=== PATIENT | female | born 1945 | race Caucasian/White ===

== ENCOUNTER 2019-07-26 11:09 | Outpatient (CLI) | payer MEDICARE, BC ==
[~2019-07-26] VITALS: Ht 167.6 cm; Wt 59.0 kg
--- NOTE | ~2019-07-26 | HEMODYNAMI ---
PATIENT:WISAM QUEEN MEDICAL RECORD: [id number] : 49 LOCATION:[facility] ADMISSION DATE: 07/26/19 Generatedon:07/26/201913:36 Patient name: WISAM QUEEN Patient #: [id number] SSN: DO B: 1945 Date of study: 07/26/2019 Page: Of Hemodynamic Procedure Report Patient Data Patient Demographics Procedure consent was obtained First Name: WISAM Gender: Female Last Name: BERNICE : 1945 Patient #: [id number] Age: 73 year(s) Race: Additional ID: [id number] Contact details [address]: [address] [place] [address] State: [place] City: [place] Zip code: [address] Admission Admission Data Admission Date: 07/26/2019 Admission Time: 11:09 Arrival Date: 07/26/2019 Arrival Time: 13:00 Admit Source: Other Insurance Payor: Medicare [facility] #: [id number] Height (in.): 65.75 BSA: 1.66 (m2) Height (cm.): 167 BMI: 21.16 (kg/m2) Weight (lbs.): 130.07 Weight (kg.): 59 Lab Results Lab Result Date: 07/26/2019 Lab Result Time: 0:00 Biochemistry Name Units Result Min Max BUN mg/dl 12 --(-*--)-- 7 18 Creatinine mg/dl 0.8 --(-*--)-- 0.6 1.3 eGFR ml/min 75 *-(----)-- 90 120 NONAFRICAN CBC Name Units Result Min Max Hemoglobin g/dl 13.1 -*(----)-- 13.5 17.5 Procedure Procedure Types Cath Procedure Diagnostic Procedure C [facility] w/Coronaries Sedation Charges Moderate Sedation up to 15 minutes PCI Procedure Coronary Stent Coronary Stent Initial Hemochron ACT Test Procedure Description Procedure Date Procedure Date: 07/26/2019 Procedure Start Time: 13:11 Procedure End Time: 13:32 Procedure Staff Name Function Antwan Hightower MD Performing Physician Ludy Musa RT Monitor Donna Woodall RT Scrub Jose Manuel Jain RN Nurse Indication Angina Procedure Data Cath Procedure Fluoroscopy Diagnostic fluoroscopy Total fluoroscopy Time: 3.2 time: 3.2 min min Diagnostic fluoroscopy Total fluoroscopy dose: 249 dose: 249 mGy mGy Contrast Material Contrast Material Type Amount (ml) Isovue 300 75 Entry Location Entry Primary Successful Side Size Upsize Upsize Entry Closure [place] ccessful Closure Location (Fr) 1 (Fr) 2 (Fr) Remarks Device Remarks Radial Right 6 Fr Mechanical artery Short Compression Estimated blood loss: 5 ml Diagnostic catheters Device Type Used For End Catheter Placement DIAGNOSTIC [place] 110cm 5 Multi-vessel Fr catheter ([id number]) Angiography Procedure Complications No complications Procedure Medications Medication Administration Route Dosage Oxygen etCO2 Nasal cannula 2 l/min Lidocaine 2% added to field 20 Heparin Flush Bag added to field 2 bags (1000units/500ml NS) 0.9% NaCl I.V. 100 ml/hr Radial Cocktail I.A. 1 syringe (Verapamil 2mg/Nitro 400mcg/Heparin 1500units) Versed I.V. 2 mg Fentanyl I.V. 50 mcg Heparin Bolus I.V. 4000 units Versed I.V. 1 mg Fentanyl I.V. 50 mcg Integrilin (Bolus I.V. 5 ml 2mg/ml) Versed I.V. 1 mg Plavix P.O. 600 mg Hemodynamics Rest BSA: 1.66 (m2) HGB: 13.1 (g/dl) O2 Consumption: Estimated: 171.26 (ml/min) O2 Co nsumption indexed: Estimated:103.17 (ml/min/m) Heart Rate: 100 (bpm) Pressure Samples Time Site Value (mmHg) Purpose Heart Use Rate(bpm) 13:15 LV 152/39,32 Snapshot 137 13:15 AO 152/135(136) Pullback 106 Gradients Valve Time Site Site 2 Mean SEP/DFP Peak To Heart Use 1 (mmHg) (sec/min) Peak Rate (mmHg) (bpm) Aortic 13:15 LV AO 106 152/135(136) Snapshots Pre Cath Intra NCS Post Cath Vital Signs Time Heart Resp SPO2 etCO2 NIBP (mmHg) Rhythm Pain Sedation Rate (ipm) (%) (mmHg) Status Level (bpm) 13:03:23 88 15 97 32.1 157/75(107) NSR 0 (11) 10(A) , No pain 13:07:50 96 16 98 35.1 148/69(107) NSR 0 (11) 10(A) , No pain 13:12:12 91 16 100 14.9 133/63(88) NSR 0 (11) 9(A) , No pain 13:16:30 107 14 98 38.1 124/61(85) NSR 0 (11) 9(A) , No pain 13:20:46 111 13 99 38.1 124/63(92) NSR 0 (11) 9(A) , No pain 13:25:08 111 22 100 32.1 137/61(93) NSR 0 (11) 9(A) , No pain 13:29:30 101 15 100 34.4 131/67(89) NSR 0 (11) 10(A) , No pain Medications Time Medication Route Dose Verified Delivered Reason Not es Effectiveness by by 13:03:12 Oxygen etCO2 2 l/min Antwan Richard used for Nasal St Pablo Jain RN procedure cannula 13:03:20 Lidocaine 2% added 20ml Antwan Moncada used for to vial [facility] procedure field MD NICHOLAS 13:03:25 Heparin Flush added 2 bags Antwan Moncada used for Bag to [facility] procedure (1000units/500ml field MD NICHOLAS NS) 13:03:34 0.9% NaCl I.V. 100 Antwan Richard Per physician ml/hr St Pablo Jain RN, MD 13:08:43 Versed I.V. 2 mg Antwan Riosie for sedation St Pablo Jain RN, MD 13:08:50 Fentanyl I.V. 50 mcg Antwan Riosie for sedation St Pablo Jain RN, MD 13:13:27 Radial Cocktail I.A. 1 Antwan Moncada for (Verapamil syringe [facility] John vasodilation 2mg/Nitro MD NICHOLAS 400mcg/Heparin 1500units) 13:14:58 Versed I.V. 1 mg Antwan Riosie for sedation St Pablo Jain RN, MD 13:15:01 Fentanyl I.V. 50 mcg Antwan Richard for sedation St Pablo Jain RN, MD 13:19:41 Heparin Bolus I.V. 4000 Antwan Richard for clari ified units St Pablo Jain RN anticoagulation with dr MD hardwick 13:22:25 Integrilin I.V. 5 ml Antwan Richard for was caron 5 (Bolus 2mg/ml) St Pablo Jain RN anticoagulation ml of MD vial 13:25:52 Versed I.V. 1 mg Antwan Richard for sedation St Pablo Jain RN, MD 13:30:00 Plavix P.O. 600 mg [address] for [facility] Pablo Jain RN antiplatelet MD therapy Procedure Log Time Note 12:30:04 Jose Manuel Jain RN sent for patient. Start room use. 12:46:05 Diagnostic Cath Status : Elective 12:46:56 Indication : Angina 12:47:11 Time tracking: Regular hours (M-F 7:00 - 5:00) 12:47:15 Plan of Care:Hemodynamics will remain stable., Cardiac rhythm will remain stable., Comfort level will be maintained., Respiratory function will remain adequate., Patient/ family verbilizes understanding of procedure., Procedure tolerated without complication., Recovers from procedure without complications.. 12:49:14 Lab Result : eGFR NONAFRICAN 75 ml/min 12:49:14 Lab Result : Hemoglobin 13.1 g/dl 12:49:14 Lab Result : BUN 12 mg/dl 12:49:14 Lab Result : Creatinine 0.8 mg/dl 12:51:01 Informed consent obtained and on chart 12:52:08 Admit Source: Other 12:52:10 Arrival Date: 07/26/2019 1:00:00 PM 12:52:36 Insurance Payor : Medicare 12:52:46 Patient Height : 65.75 inches 12:52:49 Patient Weight : 130.07 lbs 12:52:57 Patient received from Pre/Post Procedure Room to CCL 1 Alert and oriented. Tansferred to table in Supine position. 12:52:58 Warm blankets applied, and maryan hugger turned on for patient comfort. 12:52:59 Correct patient and procedure confirmed by team. 12:52:59 ECG and BP/O2 sat monitors applied to patient. 13:02:08 Vital chart was started 13:03:12 Oxygen 2 l/min etCO2 Nasal cannula was administered by Jose Manuel Jain RN; used for procedure; Verbal order read back and verified. 13:03:20 Lidocaine 2% 20ml vial added to field was administered by nAtwan Hightower MD; used for procedure; Verbal order read back and verified. 13:03:25 Heparin Flush Bag (1000units/500ml NS) 2 bags added to field was administered by Antwan Hightower MD; used for procedure; Verbal order read back and verified. 13:03:34 0.9% NaCl 100 ml/hr I.V. was administered by Jose Manuel Jain RN; Per physician; Verbal order read back and verified. 13:05:43 Baseline sample Acquired. 13:05:54 Rhythm: sinus tachycardia 13:05:56 Full Disclosure recording started 13:06:01 H&P Date Dictated: 07/26/2019 Within 30 days and on chart., H&P Addendum completed by physician on day of procedure. (MUST COMPLETE FOR ALL OUTPATIENTS). 13:06:02 Pre-procedure instructions explained to patient. 13:06:03 Pre-op teaching completed and patient verbalized understanding. 13:06:05 Family in patients room. 13:06:06 Patient NPO since Midnight. 13:06:09 Is the patient allergic to Iodine/contrast media? No. 13:06:10 Was the patient premedicated? Yes 13:06:11 Is patient on blood thinner?No 13:06:12 Patient diabetic? No. 13:06:15 Previous problem with sedation/anesthesia? No ? 13:06:17 Snore? No 13:06:18 Sleep apnea? No 13:06:19 Deviated septum? No 13:06:20 Opens mouth fully? Yes 13:06:21 Sticks out tongue? Yes 13:06:23 Airway obstruction? No ? 13:06:29 Dentures? Yes CRACKED TOOTH 13:06:36 Pre procedure: right dorsailis pedis pulse 2+ Normal; easily identifiable; not easily obliterated 13:06:39 Pre procedure: left dorsailis pedis pulse 2+ Normal; easily identifiable; not easily obliterated 13:06:42 Patient pain scale 0/10 ?. 13:06:53 IV patent on arrival in left forearm with 0.9% NaCl at [facility]. 13:07:05 Lab results completed and on chart. 13:07:40 Stress Test: yes; N/A ? 13:07:45 Risk of Mortality: 0.1 13:07:48 Risk of blood transfusion: 0.8 13:07:52 Risk of ALEXEI: 0.4 13:08:21 Right Radial & Right Groin area was prepped with chlora-prep and draped in sterile fashion 13:08:22 Alarms reviewed by RDarleen N. 13:08:22 Sharps counted by scrub and verified by R.N. 13:08:24 Physician arrived 13:08:24 --------ALL STOP TIME OUT------ 13:08:25 Final Timeout: patient, procedure, and site verified with staff and physician. All members of the team are in agreement. 13:08:26 Right Radial & Right Groin site verified by team. 13:08:30 Fire Safety Assessment: A--An alcohol-based skin anteseptic being used preoperatively., C--Open oxygen or nitrous oxide is being used., D--An ESU, laser, or fiber-optic light is being used. 13:08:34 Physical assessment completed. ASA score P 2 - A patient with mild systemic disease as per Antwan Hightower MD. 13:08:43 Versed 2 mg I.V. was administered by Jose Manuel Jain RN; for sedation; Verbal order read back and verified. 13:08:44 2) 60-89 Mildly reduced kidney function, and other findings (as for stage 1) point to kidney disease. 13:08:50 Fentanyl 50 mcg I.V. was administered by Jose Manuel Jain RN; for sedation; Verbal order read back and verified. 13:08:53 Maximum allowable contrast dose (3.7 X eGFR X 0.75)203 ml. 13:08:59 Sedation plan: IV Moderate Sedation Medication:Versed, Fentanyl 13:09:32 Use device set Radial Dx or PCI 13:09:33 ACIST Syringe (12793) opened to sterile field. 13:09:33 Medline Cath Pack ([id number]) opened to sterile field. 13:09:34 Bag Decanter () opened to sterile field. 13:09:34 ACIST Hand Control (21513) opened to sterile field. 13:09:34 ACIST Manifold (60582) opened to sterile field. 13:09:35 Tegaderm 4 x 4 (1626W) opened to sterile field. 13:09:35 MBrace Wrist Support ([id number]) opened to sterile field. 13:09:38 SHEATH 6FR RAIN (1506935) opened to sterile field. 13:09:38 EMERALD Guide Wire (719-476) opened to sterile field. 13:11:52 Procedure started. 13:11:57 Local anesthetic to right radial artery with Lidocaine 2% by Antwan Hightower MD.INITIAL ACCESS ONLY 13:12:06 A 6 Fr Short sheath was inserted into the Right Radial artery 13:13:27 Radial Cocktail (Verapamil 2mg/Nitro 400mcg/Heparin 1500units) 1 syringe I.A. was administered by Antwan Hightower MD; for vasodilation; Verbal order read back and verified. 13:14:39 A DIAGNOSTIC [place] 110cm 5 Fr catheter ([id number]) was advanced over the wire and used for Multi-vessel Angiography. 13:14:58 Versed 1 mg I.V. was administered by Jose Manuel Jain RN; for sedation; Verbal order read back and verified. 13:15:01 Fentanyl 50 mcg I.V. was administered by Jose Manuel Jain RN; for sedation; Verbal order read back and verified. 13:15:33 LV hemodynamics recorded. 13:15:35 LV gram done using PINON 13:15:53 EF : 55 % 13:16:01 LCA angiography performed. 13:16:08 Injector settings: Ml/sec: 3, Volume: 6, 13:16:26 ACC Pre-intervention MINOO Flow is 3. 13:16:27 Pre PCI Site: [place] mLAD has 80% stenosis. 13:17:11 RCA angiography performed. 13:17:14 Injector settings: Ml/sec: 3, Volume: 6, 13:17:26 ACCDominant side:Right 13:17:26 Catheter removed. 13:17:26 Proceeding to intervention. 13:17:52 INFLATOR Merit BasixCompak (CO9873) opened to sterile field. 13:17:57 GUIDE 6FR XBLAD 3.5 catheter ([id number]) opened to sterile field. 13:18:16 WHISPER 300cm guide wire ([id number]) opened to sterile field. 13:19:40 6 Fr XBLAD 3.5 guide catheter was inserted over the wire 13:19:41 Heparin Bolus 4000 units I.V. was administered by Jose Manuel Jain RN; for anticoagulation; verified with dr hardwick Verbal order read back and verified. 13:19:43 WHISPER wire advanced. 13:22:25 Integrilin (Bolus 2mg/ml) 5 ml I.V. was administered by Jose Manuel Jain RN; for anticoagulation; wasted 5 ml of vial Verbal order read back and verified. 13:23:28 Wire advanced across lesion. 13:25:52 Versed 1 mg I.V. was administered by Jose Manuel Jain RN; for sedation; Verbal order read back and verified. 13::43 Place stent Inflation Number: 1 A MICHELLE RX 3.0 x 15 stent ([id number]) was prepped and advanced across the Mid LAD 80. The stent was deployed at 14 FRANK for 0:10 (min:sec) 0. 13:26:58 Stent catheter was removed intact over wire. 13::59 Wire removed. 13::59 Guide catheter removed. 13:27:32 Sheath removed intact; hemostasis achieved with Mechanical Compression to the Right Radial artery. 13:27:36 ZEPHYR REGULAR TR BAND (814199) opened to sterile field. 13:27:39 Procedure ended.(Physican Out) 13:30:00 Plavix 600 mg P.O. was administered by Jose Manuel Jain RN; for antiplatelet therapy; Verbal order read back and verified. 13:30:56 ACC Post-intervention MINOO Flow is 3. 13:31:07 Fluoroscopy time 03.20 minutes. 13:31:12 Fluoroscopy dose: 249 mGy 13:31:12 Flurop Dose total: 249 13:31:18 Dose Area Product 45175 mGy/cm. 13:31:35 Contrast amount:Isovue 300 75ml. 13:31:38 Maximum allowable dose exceeded? No. 13:31:39 Sharps counted by scrub and verified by R.N. 13:31:41 [place] band inflated with 12cc of air. 13:31:42 Insertion/operative site no bleeding no hematoma. 13:31:47 Post right radial artery:stable 13:31:49 Post Procedure Pulses reassessed and unchanged 13:31:51 Post procedure rhythm: unchanged. 13:31:54 Estimated blood loss: 5 ml 13:31:55 Post procedure instruction explained to patient.Patient verbalizes understanding. 13:31:56 Patient needs reinforcement of post procedure teaching. 13:32:34 Procedure type changed to Cath procedure, Diagnostic procedure, [facility], [facility] w/Coronaries, Sedation Charges, Moderate Sedation up to 15 minutes, PCI procedure, Coronary Stent, Coronary Stent Initial, Hemochron ACT Test 13:32:36 Procedure and supply charges have been captured, reviewed, submitted and are correct. 13:32:41 Procedure Complication : No complications 13:32:43 Vital chart was stopped 13:32:44 [facility] Findings: MVD- PCI performed (see procedure note) 13:32:46 Operative report dictated upon procedure completion. 13:32:47 See physician's report for complete and final results. 13:32:49 Report given to Pre/Post Procedure Room. 13:32:52 Patient transfered to Pre/Post Procedure Room with Stretcher. 13:32:54 Procedure ended. 13:32:54 Full Disclosure recording stopped 13:33:02 ACT drawn and resulted at out of range high seconds. (normal therapeutic range 180-240 seconds). 13:33:21 ACC-PCI Only Patient was given prescriptions, or instructed by Antwan Hightower MD to start/continue the following medications upon discharge: Plavix 13:33:22 End room use (Document Last) Intervention Summary Intervention Notes Time ActionType Lesion and Equipment Used Action# Pressure Duration Attributes 13:26:43 Place stent Mid LAD MICHELLE RX 3.0 x 1 14 00:10 15 stent ([id number]) Device Usage Item Name Manufacture Quantity Catalog Hospital Part [facility] Lot# / Number Charge Number Stock Stock Serial# Code ACIST Syringe Acist 1 45362 332589 483787 [id number] 20 (10085) Medical Systems Inc Medline Cath Medline 1 [id number] 362863 21926 751094 5 Pack ([id number]) Bag Decanter Microtek 1 2001S 266711 74915 733682 5 (2001S) Medical Inc. ACIST Hand Acist 1 98237 055028 142252 645244 5 Control Medical (42672) Systems Inc ACIST Manifold Acist 1 27192 598683 372134 924663 5 (24808) Medical Systems Inc Tegaderm 4 x 4 3M 1 1626W 542639 795998 174940 5 (1626W) MBrace Wrist Advanced 1 140-0250-00 855590 13811 891245 5 Support Vascular ([id number]) Dynamics SHEATH 6FR Cardinal 1 9785072 964555 4070954 007503 5 RAIN (9250814) [facility] EMERALD Guide Cardinal 1 502-455 036844 370826 406942 5 Wire (502-455) [facility] DIAGNOSTIC Terumo 1 40-2411 501086 991799 947326 5 [place] 110cm 5 Fr catheter (393417) INFLATOR Merit Merit 1 QS0949 763139 297042 759546 15 BasixCompak Medical (ET9275) GUIDE 6FR Cardinal 1 [id number] 224657 624035 473922 10 XBLAD 3.5 Health catheter (63877923) WHISPER 300cm Jones 1 [id number] 112934 943004 712683 5 guide wire Vascular (3967356ND) MICHELLE RX 3.0 x Medtronic 1 [id number] 371692 5841765 215291 5 [id number] 15 stent ([id number]) ZEPHYR REGULAR Cardinal 1 494671 482188 7290951 895055 5 [facility] Stat Doctors (730429) Signature Audit [place] Stage Time Signature Unsigned Intra-Procedure 07/26/2019 Ludy Musa 1:36:09 PM RT(R) Intra-Procedure 07/26/2019 Jose Manuel Jain RN 1:36:33 PM Intra-Procedure 07/26/2019 Antwan Elliott 1:36:49 PM Pablo NICHOLAS [address] [place] [address]
[2019-07-26] MEDS ORDERED: LEVOTHYROXINE100 MCG PO (11:34)
[2019-07-26] MEDS ORDERED: SINGULAIR10 MG PO (11:34)
[2019-07-26 11:43] VITALS: BP 156/69; Ht 167.6 cm; Wt 59.0 kg
[2019-07-26 12:04] LABS: BASOPHILS 0.7 % (0-2); EOSINOPHILS 2.2 % (0-7); HEMATOCRIT 39.6 % (36.0-48.0); HEMOGLOBIN 13.1 g/dL (12-16); IMMATURE GRANULOCYTES 0.3 % (0-5); LYMPHOCYTES 30.9 % (15-50); MCH 32.3 pg (26.0-34.0); MCHC 33.1 g/dL (31.0-37.0); MCV 97.8 fL (80.0-100.0); MEAN PLATELET VOLUME 9.9 fL (7.4-10.4); MONOCYTES 7.8 % (2-11); NEUTROPHILS 58.1 % (40-80); PLATELET COUNT 265 10x3/uL (130-400); RBC 4.05 10x6/uL (4.00-5.40); RDW 12.5 % (11.5-14.5); WBC 6.7 10x3/uL (4.8-10.8)
[2019-07-26 12:18] LABS: ALT (SGPT) 20 U/L (10-68); CALC OSMOLALITY 277 mosm/kg (275-300); CALCIUM 9.5 mg/dL (8.5-10.1); CARBON DIOXIDE 28.2 mmol/L (21.0-32.0); CHLORIDE - SERUM 105 mmol/L (98-107); CHOL - HDL RATIO 2.4 ratio (2.3-4.1); CHOLESTEROL, TOTAL 191 mg/dL (0-200); CREATININE - SERUM 0.8 mg/dL (0.6-1.3); GLUCOSE 105 mg/dL (74-106); HDL CHOLESTEROL 81 mg/dL (32-96); LDL CHOLESTEROL 87 mg/dL (0-100); LDL-HDL RATIO 1.1 ratio (1.5-3.5); POTASSIUM - SERUM 3.6 mmol/L (3.5-5.1); SODIUM 139 mmol/L (136-145); TRIGLYCERIDE 117 mg/dL (30-200); UREA NITROGEN 12 mg/dL (7-18); eGFR NON AFRICAN AMERICAN 75 mL/min (90-120)
[2019-07-26] MEDS ORDERED: PLAVIX75 MG PO (13:42)
--- NOTE | 2019-07-26 13:45 | NUR ---
PT REC'D TO ROOM 5 VIA STRETCHER FROM SUPERVISOR BINDERY. FRIEND AT BS. MONITORS ESTAB. SEE VETERINARY MANAGER. ALARMS ON AND C/L IN REACH.
--- NOTE | 2019-07-26 14:00 | NUR ---
R WRIST SITE C/D/I, NO S/S BLEEDING OR HEMATOMA. R ARM/HAND WARM, PULSES PALP WITH BRISK CAP REFILL. VSS. ALARMS ON AND C/L IN REACH.
[2019-07-26] MEDS ORDERED: BAYER CHEWABLE81 MG PO (14:07)
--- NOTE | 2019-07-26 14:30 | NUR ---
R WRIST SITE C/D/I, NO S/S BLEEDING OR HEMATOMA. HAND WARM WITH PALP PULSES. VSS. PT DENIES PAIN OR NEEDS. FRIEND REMAINS AT BS.
--- NOTE | 2019-07-26 14:45 | NUR ---
R WRIST SITE C/D/I, NO S/S BLEEDING OR SWELLING. VSS. PT DENIES NEEDS.
--- NOTE | 2019-07-26 15:15 | NUR ---
R WRIST SITE C/D/I, NO S/S BLEEDING OR HEMATOMA. PULSES PALP. VSS. PT GIVEN COFFEE PER REQUEST. ALARMS ON AND C/L IN REACH.
--- NOTE | 2019-07-26 15:45 | NUR ---
R WRIST SITE C/D/I, NO S/S BLEEDING OR HEMATOMA. SITTING UP IN BED, VISITING. VSS. DENIES NEEDS.
--- NOTE | 2019-07-26 16:45 | NUR ---
1cc OF AIR REMOVED FROM Z BAND. NO BLEEDING/HEMATOMA NOTED. CALL LIGHT WITHIN REACH. FRIEND AT BEDSIDE. VSS.
--- NOTE | 2019-07-26 17:00 | NUR ---
2cc OF AIR REMOVED FROM Z BAND. NO BLEEDING/HEMATOMA NOTED. CALL LIGHT WITHIN REACH. VSS AT THIS TIME. FRIEND AT BEDSIDE.
--- NOTE | 2019-07-26 17:20 | NUR ---
R WRIST SITE C/D/I, NO S/S BLEEDING. PIV D/C'D INTACT, DSG APPLIED. PT UP TO GET DRESSED WITH ASSISTANCE, THEN TO BR INDEPENDENTLY.
--- NOTE | 2019-07-26 17:35 | NUR ---
Z BAND REMOVED AND DSG APPLIED, ARM BOARD IN PLACE. ALL D/C INSTRUCTIONS REVIEWED WITH PT AND FRIEND WHO IS STAYING WITH HER TONIGHT.
--- NOTE | 2019-07-26 17:45 | NUR ---
PT D/C'D VIA W/C TO PRIVATE VEHICLE WITH ALL PAPERWORK, PRESCRIPTION, AND BELONGINGS.
--- NOTE | 2019-07-27 12:12 | OP ---
PATIENT NAME: WISAM QUEEN MEDICAL RECORD: [id number] :49 LOCATION:D.[facility] ADMISSION DATE: SURGEON: AMAYA HARDIN MD DATE OF OPERATION: 07/26/2019 PROCEDURE: Left heart catheterization, selective coronary angiography, right radial approach. CATHETERS: . Radial sheath, Rudolph catheter. The procedure was well tolerated. The patient returned to the waggoner. Sheath removed. Adequate hemostasis and TR band was placed. FINDINGS: Left ventriculography in 30-degree PINON view: Normal wall motion, normal systolic function. CORONARY ANATOMY: LEFT MAIN: Left main is free of disease. LAD: Has discrete 80% stenosis in its mid portion. CIRCUMFLEX: Free of disease. RIGHT CORONARY ARTERY: Dominant right, free of disease. IMPRESSION: Single-vessel disease. Continued angina. PLAN: Intervention momentarily. DESCRIPTION OF PROCEDURE: Using indwelling sheath, XB LAD guiding catheter provided excellent guide catheter support followed by 300 cm Whisper wire was placed across the tightly occluded LAD down this portion of vessel. Stent deployed was a 3.0 x 15 mm [place] drug-eluting stent up to a 14 atmospheres for 45 seconds. Final angiography shows excellent resolution of 80% stenosis, no significant residual. MINOO flow was 3 throughout the procedure. Heparin was used during the case. Plavix was loaded in the lab. Sheath was closed with ExoSeal device. TRANSINT:[id number] Voice Confirmation ID: [id number] DOCUMENT ID: [id number] AMAYA HARDIN MD at 1212 CC: [id number] DICTATION DATE: 07/26/19 1332 BRANCH MANAGER: 07/26/19 1719 DEP CLI 07/26/19 [facility] [address] [place] [address]
== END 2019-07-26 17:45 | disposition home or self-care (01) ==
LOC: D.CATH 11:09
PROVIDERS: ATTEND Internal Medicine Interventional Cardiology
DX: I25.119 Atherosclerotic heart disease of native coronary artery with unspecified angina pectoris (principal); R00.2 Palpitations
CPT/HCPCS: 93458; C9600